=== PATIENT | female | born 2000 | race Caucasian/White ===

== ENCOUNTER 2023-06-02 19:53 | Observation (INO) | payer OTHER, SELFPAY ==
[2023-06-02 20:00] VITALS: BMI 22.8
[2023-06-02 20:15] VITALS: BP 114/69; PULSE 96
[2023-06-02 20:16] VITALS: BP 107/69; PULSE 94
[2023-06-02 20:49] LABS: Appearance Urine Clear (Clear); Bilirubin Urine Negative (Negative); Blood Urine Negative (Negative); Color Urine Yellow (Yellow); Glucose Urine UA Negative (Negative); Ketones Urine Negative (Negative); Leukocyte Esterase Ur Negative LEU/UL (NEGATIVE); Nitrate Urine Negative (Negative); Protein Urine Negative (Negative); Specific Grav Ur 1.008 (1.001-1.035); pH Urine 7.5 (5.0-9.0)
[2023-06-02 21:02] LABS: Add Urine Microscopic? NO
--- NOTE | 2023-06-03 11:16 | P.PNOB_ITS ---
OB - Triage/Final Diagnosis Visit Information Date of evaluation: 06/03/23 Reason for evaluation: threatened labor Comments/Additional reasons for admission: I have assessed the risk for this patient, Isela Lara, and determined that she would benefit from observation care. Evaluation Laboratory results: Laboratory Tests 06/02/23 20:31 Urine Color Yellow Urine Appearance Clear Urine pH 7.5 Ur Specific Amasa 1.008 Urine Protein Negative Urine Glucose (UA) Negative Urine Ketones Negative Ur Blood (Man) Negative Urine Nitrate Negative Urine Bilirubin Negative Urine Urobilinogen 1.0 Ur Leukocyte Esterase Negative Vital signs: Vital Signs - 24 hr 06/02/23 20:00 06/02/23 20:15 06/02/23 20:16 Pulse Rate 96 94 Blood Pressure 114/69 107/69 Oxygen Delivery Room Air
== END 2023-06-02 21:20 | disposition home or self-care (01) ==
PROVIDERS: Admitting Provider Obstetrics & Gynecology; Visit Provider Obstetrics & Gynecology
DX: O47.03 False labor before 37 completed weeks of gestation, third trimester (principal); O26.893 Other specified pregnancy related conditions, third trimester; R10.9 Unspecified abdominal pain; Z3A.34 34 weeks gestation of pregnancy
CPT/HCPCS: 81003; 84112; 87086; 87088; G0378; G0379

== ENCOUNTER 2023-06-03 10:26 | Emergency (ER) | payer OTHER, SELFPAY ==
[2023-06-03 10:39] VITALS: BP 111/72; PULSE 103; RESP 16; TEMP 36.7; O2SAT 98
--- NOTE | 2023-06-03 10:50 | ED.GENADULT ---
HPI - General Adult General Chief complaint: Asthma Stated complaint: Asthma Time Seen by Provider: 06/03/23 10:50 Source: patient Mode of arrival: ambulatory Limitations: no limitations History of Present Illness HPI narrative: 22-year-old female With history of asthma presents with complaint shortness of breath, wheezing since yesterday. patient is 33 weeks . Reports that her asthma has been worse during . Has been on prednisone burst several times throughout . Patient has been using albuterol inhaler without relief of symptoms. Does have a nebulizer but lifted [place] minutes [place]. Is currently staying with a family member in the area. Patient speaking in full sentences, no respiratory distress. Patient is next OB appointment is Thursday. All systems reviewed and negative except as noted above. Related Data Home Medications Medication Instructions Recorded Confirmed albuterol sulfate 2.5 mg/3 mL 2.5 mg continuous nebulization QID 06/03/23 06/03/23 (0.083 %) solution for nebulization PRN sob albuterol sulfate 90 mcg/actuation 2 puff inhalation Q4-5H PRN sob 06/03/23 06/03/23 aerosol inhaler budesonide-formoterol HFA 160 2 puff inhalation BID 06/03/23 06/03/23 mcg-4.5 mcg/actuation aerosol inhaler (Symbicort) vit no.95-ferrous 1 tablet PO DAILY 06/03/23 06/03/23 fumarate 28 mg-folic acid 800 mcg tablet () Allergies Allergy/AdvReac Type Severity Reaction Status Date / Time ibuprofen [From Motrin] Allergy Intermediate Hives Verified 06/03/23 11:00 Review of Systems Review of Systems: CONSTITUTIONAL: Denies fever, chills, or sweats. EYES: Denies visual changes, redness, or discharge. ENT: Denies rhinorrhea, congestion, sore throat, or otalgia. CARDIOVASCULAR: Denies chest pain, palpitations, or edema. RESPIRATORY: Reports cough, wheezing,dyspnea. GASTROINTESTINAL: Denies abdominal pain, nausea, vomiting, or diarrhea. GENITOURINARY: Denies dysuria or hematuria. SKIN: Denies rash or itching. MUSCULOSKELETAL: Denies back pain, joint pain, or myalgia. NEUROLOGIC: Denies headache, numbness, or weakness. PSYCHIATRIC: Denies anxiety or depression. All other systems reviewed are negative, except as documented in HPI. PMFSH Comments At time of signature, agree with nursing past medical, surgical, social and family history. There is no relevant family history pertinent to the presenting complaint. Exam Narrative: GENERAL: This is a well-nourished, well-developed patient, in no apparent distress. HEAD: normocephalic, atraumatic. EYES: PERRL. Sclera clear/white. Vision is grossly intact. EARS: External ears normal, auditory canals clear and without drainage, TMs normal without perforation. Hearing grossly intact. NOSE: External nose normal with no obvious nasal discharge, nares without redness, no rhinorrhea. THROAT: Mucous membranes moist, posterior pharynx clear. NECK: Neck supple, non-tender without lymphadenopathy, masses or thyromegaly. CARDIOVASCULAR: Regular rate and rhythm without murmurs, gallops, or rubs. RESPIRATORY: tight with expiratory wheezing throughout all lung oliva. NO rales, or rhonchi. SKIN: warm, Dry, intact with no suspicious lesions or rash, good texture and turgor. NEURO: awake, alert, and oriented to person, place and time. There were no obvious focal neurologic abnormalities. EXTREMITIES: No joint tenderness, effusion, or edema noted. Course Course Level of Care: Express Care Visit Reevaluation(s) Reevaluation #1: lungs clear to auscultation after duoneb. pt reports feeling much better. Vital Signs Vital signs: Vital Signs Temperature 36.7 C 06/03/23 10:39 Pulse Rate 103 H 06/03/23 10:39 Respiratory Rate 16 06/03/23 10:39 Blood Pressure 111/72 06/03/23 10:39 Pulse Oximetry 98 06/03/23 10:39 Oxygen Delivery Room Air 06/03/23 10:39 Temperature 36.7 C 06/03/23 10:39 P
[2023-06-03] MEDS: predniSONE 20 MG TABLET 40 MG PO (11:01)
[2023-06-03] MEDS: ALBUTEROL SULFATE NEB 2.5 MG/3 ML INH INHALATION (11:02)
[2023-06-03] MEDS: IPRATROPIUM BR 0.02% INH SOLN 0.5 MG/2.5 ML VIAL INHALATION (11:02)
== END 2023-06-03 11:46 | disposition home or self-care (01) ==
PROVIDERS: Emergency Provider Nurse Practitioner Family
DX: J45.901 Unspecified asthma with (acute) exacerbation (principal); Z79.899 Other long term (current) drug therapy
CPT/HCPCS: 94640; 99213; G0463; J7512